=== PATIENT | female | born 1950 | race Caucasian/White ===

== ENCOUNTER 2020-05-20 10:41 | Observation (INO) | payer MEDICARE ==
[2020-05-20] MEDS ORDERED: MECLIZINE 12.5 MG TAB PO STA (11:09)
[2020-05-20] MEDS ORDERED: SODIUM CHLORIDE 0.9% 1,000 ML IV STA (11:09)
[2020-05-20] MEDS ORDERED: ONDANSETRON 4 MG/2 ML VIAL IVP STA (11:09)
--- NOTE | 2020-05-20 11:15 | ED ---
General Adult HPI - General Chief complaint: Dizziness Stated complaint: Vertigo Time Seen by Provider: 05/20/20 10:45 Source: patient, EMS, RN notes reviewed, old records reviewed Mode of arrival: EMS - History of Present Illness Initial comments: 70-year-old female history of vertigo presenting for evaluation lightheaded, vomiting or patient states that approximate 7:30 this morning she had bent over and when she stood up quickly she became lightheaded, dizzy and had one episode of vomiting. Proximally half hour later she ate a salad and became more nauseous. She's has not had the sensation of room spinning. She denies headache. Denies focal numbness or weakness. She denies any pain complaints, no chest pain or abdominal pain. She does report persistent nausea. - Related Data Allergies Allergy/AdvReac Type Severity Reaction Status Date / Time tetracycline Allergy Unknown Verified 05/20/20 11:33 Review of Systems ROS Statement: Those systems with pertinent positive or pertinent negative responses have been documented in the HPI. ROS Other: All systems not noted in ROS Statement are negative. Past Medical History Past Medical History: Hypertension, Osteoarthritis (OA) History of Any Multi-Drug Resistant Organisms: None Reported Past Surgical History: Joint Replacement Past Psychological History: No Psychological Hx Reported Smoking Status: Never smoker Past Alcohol Use History: None Reported Past Drug Use History: None Reported General Exam General appearance: alert, in no apparent distress Head exam: Present: atraumatic, normocephalic Eye exam: Present: normal appearance, PERRL ENT exam: Present: normal exam Neck exam: Present: normal inspection. Absent: tenderness, meningismus Respiratory exam: Present: normal lung sounds bilaterally. Absent: respiratory distress Cardiovascular Exam: Present: regular rate, normal rhythm GI/Abdominal exam: Present: soft. Absent: distended Extremities exam: Present: normal inspection, normal capillary refill. Absent: pedal edema Neurological exam: Present: alert, oriented X3, CN II-XII intact. Absent: motor sensory deficit Psychiatric exam: Present: normal affect, normal mood Skin exam: Present: warm, intact, diaphoretic Course Vital Signs 05/20/20 05/20/20 05/20/20 10:48 11:00 11:30 Temperature 97.4 F L Pulse Rate 71 66 68 Respiratory 16 14 14 Rate Blood Pressure 166/89 166/89 171/79 O2 Sat by Pulse 97 96 97 Oximetry 05/20/20 05/20/20 05/20/20 12:00 12:30 13:04 Temperature Pulse Rate 65 69 69 Respiratory 16 4 L 18 Rate Blood Pressure 169/81 172/102 171/78 O2 Sat by Pulse 99 98 Oximetry - Reevaluation(s) Reevaluation #1: 05/20/20 13:31 Patient has had no further episodes of nausea vomiting. She did have one episode of diarrhea in the emergency department. No abdominal pain or tenderness. Reevaluation #2: 05/20/20 14:02 Patient has persistent nausea and vomiting while in the emergency department. She will be admitted for hydration, symptomatic control. EKG Findings - EKG Comments: EKG Findings:: EKG: Normal sinus rhythm, rate of 69, AZ interval 150, QRS duration 92, QTC 486, no ST segment elevation T-wave inversion in lead 3. Medical Decision Making - Medical Decision Making 70-year-old female presenting with lightheadedness, dizziness, and nausea vomiting. Patient does have a history of vertigo, states this was similar to her usual episodes of vertigo. Upon arrival she is somewhat somnolent diaphoretic. She is hypertensive with otherwise stable vitals. She has a nonfocal neurologic exam, no ataxia. Workup was initiated, she has a normal CBC, normal CMP, EKG is sinus rhythm without ischemic changes, troponin is negative. Head CT is performed which is negative for intracranial hemorrhage or mass effect. Patient remains symptomatic while emergency department and does develop some diarrhea. This may just be related to gastrointestinal infection versus food poisoning. However she remains quite nauseated with persistent vomiting. She will be admitted for symptom control and IV hydration. - Lab Data Result diagrams: 05/20/20 11:16 05/20/20 11:16 Lab Results 05/20/20 05/20/20 05/20/20 Range/Units 11:16 11:16 11:16 WBC 7.7 (3.8-10.6) k/uL RBC 5.12 (3.80-5.40) m/uL Hgb 14.5 (11.4-16.0) gm/dL Hct 45.2 (34.0-46.0) % MCV 88.4 (80.0-100.0) fL MCH 28.3 (25.0-35.0) pg MCHC 32.0 (31.0-37.0) g/dL RDW 13.3 (11.5-15.5) % Plt Count 300 (150-450) k/uL Neutrophils % 67 % Lymphocytes % 23 % Monocytes % 6 % Eosinophils % 2 % Basophils % 1 % Neutrophils # 5.2 (1.3-7.7) k/uL Lymphocytes # 1.8 (1.0-4.8) k/uL Monocytes # 0.5 (0-1.0) k/uL Eosinophils # 0.1 (0-0.7) k/uL Basophils # 0.1 (0-0.2) k/uL Sodium 138 (137-145) mmol/L Potassium 3.9 (3.5-5.1) mmol/L Chloride 106 (98-107) mmol/L Carbon Dioxide 24 (22-30) mmol/L Anion Gap 8 mmol/L BUN 17 (7-17) mg/dL Creatinine 0.53 (0.52-1.04) mg/dL Est GFR (CKD-EPI)AfAm >90 (>60 ml/min/1.73 sqM) Est GFR (CKD-EPI)NonAf >90 (>60 ml/min/1.73 sqM) Glucose 168 H (74-99) mg/dL Calcium 10.0 (8.4-10.2) mg/dL Total Bilirubin 0.5 (0.2-1.3) mg/dL AST 18 (14-36) U/L ALT 10 (4-34) U/L Alkaline Phosphatase 85 (38-126) U/L Troponin I <0.012 (0.000-0.034) ng/mL Total Protein 7.0 (6.3-8.2) g/dL Albumin 4.1 (3.5-5.0) g/dL Disposition Clinical Impression: Dehydration, Nausea & vomiting Disposition: ADMITTED IP TO THIS HOSP Condition: Stable Is patient prescribed a controlled substance at d/c from ED?: No Referrals: Nonstaff,Physician [Primary Care Provider] - 1-2 days Decision to Admit Reason: Admit from EC Decision Date: 05/20/20 Decision Time: 14:06
[2020-05-20 11:24] LABS: Basophils # (A) 0.1 k/uL (0-0.2); Basophils % (A) 1 %; Eosinophils # (A) 0.1 k/uL (0-0.7); Eosinophils % (A) 2 %; HCT 45.2 % (34.0-46.0); HGB 14.5 gm/dL (11.4-16.0); Lymphocytes # (A) 1.8 k/uL (1.0-4.8); Lymphocytes % (A) 23 %; MCH 28.3 pg (25.0-35.0); MCV 88.4 fL (80.0-100.0); Mean Platelet Volume 7.9; Monocytes # (A) 0.5 k/uL (0-1.0); Monocytes % (A) 6 %; Neutrophils # (A) 5.2 k/uL (1.3-7.7); Neutrophils % (A) 67 %; Platelet Count 300 k/uL (150-450); RBC 5.12 m/uL (3.80-5.40); RDW 13.3 % (11.5-15.5); WBC 7.7 k/uL (3.8-10.6)
[2020-05-20 11:34] LABS: ALT 10 U/L (4-34); AST 18 U/L (14-36); African American GFR (CKD) >90 (>60 ml/min/1.73 sqM); Albumin 4.1 g/dL (3.5-5.0); Alkaline Phosphatase 85 U/L (38-126); Anion Gap 8 mmol/L; Blood Urea Nitrogen 17 mg/dL (7-17); Carbon Dioxide 24 mmol/L (22-30); Chloride 106 mmol/L (98-107); Glucose 168 mg/dL (74-99); Non-African American GFR(CKD) >90 (>60 ml/min/1.73 sqM); Potassium 3.9 mmol/L (3.5-5.1); Sodium 138 mmol/L (137-145); Total Bilirubin 0.5 mg/dL (0.2-1.3)
--- NOTE | 2020-05-20 12:00 | CT ---
EXAMINATION TYPE: CT brain wo con DATE OF EXAM: 05/20/2020 COMPARISON: None HISTORY: 70-year-old female Vertigo, nausea and vomiting TECHNIQUE: Examination was done in axial plane without intravenous contrast. Coronal and sagittal r econstructions performed. CT DLP: 1060.4 mGycm Automated exposure control for dose reduction was used. FINDINGS: There is no evidence of acute intracranial hemorrhage, acute ischemic changes, mass-effect, or extra -axial fluid collection. There is no effacement of cerebral sulci or basal subarachnoid cisterns. T here is no hydrocephalus. There is no midline shift. Mckeon-white matter distinction is preserved. Small 8 mm inner table osteoma versus meningioma anterior right frontal region. Paranasal sinuses and mastoid air cells are well pneumatized. Orbits and globes are intact. IMPRESSION: No acute intracranial abnormality seen.
[2020-05-20] MEDS ORDERED: SODIUM CHLORIDE 0.9% 500 ML 500 ML IV ONE (13:30)
[2020-05-20] MEDS ORDERED: METOCLOPRAMIDE 5 MG/ML 2 ML VIAL IVP STA (14:02)
[2020-05-20] MEDS ORDERED: NALOXONE 0.4 MG/ML 1 ML VIAL IV PRN ×2 (14:03→14:14)
[2020-05-20] MEDS ORDERED: LORazepam 2 MG/ML INJ IV PRN (14:03)
[2020-05-20] MEDS ORDERED: ONDANSETRON 4 MG/2 ML VIAL IVP PRN (14:03)
[2020-05-20] MEDS ORDERED: MORPHINE SULFATE 4 MG/ML SYRINGE IV PRN (14:03)
[2020-05-20] MEDS ORDERED: ACETAMINOPHEN TAB 325 MG TAB PO PRN (14:03)
[2020-05-20] MEDS ORDERED: PROCHLORPERAZINE SUPPOSITORY 25 MG SUPP RECTAL PRN (14:14)
[2020-05-20] MEDS ORDERED: PROCHLORPERAZINE 5 MG TAB PO PRN (14:14)
[2020-05-20] MEDS: SODIUM CHLORIDE 0.9% 1,000 ML IV SCH (14:34)
--- NOTE | 2020-05-20 14:47 | P.HPIM ---
History of Present Illness H&P Date: 05/20/20 Chief Complaint: vomiting, diarrhea 70-year-old woman with past medical history of hypertension presented after developing vomiting. Patient tells me that she had a salad this morning and 45 minutes after that she developed intense nausea and began to vomit. This was non-biliary nonbloody emesis. It is associated with abdominal cramping, but no severe/sharp abdominal pain. She also started to develop diarrhea, had 2 episodes of watery, nonbloody diarrhea. Throughout the day, she started to develop orthostatic symptoms such as lightheadedness and flushing upon sitting or standing, with diaphoresis. She denies fevers, chills, chest pain, shortness of breath, sick contacts, tenesmus, dyschezia, dysuria, melena, hematochezia, numbness/weakness. Next On arrival she is afebrile, 171/78, heart rate C9, 98% on room air. CBC is unremarkable. Chemistries are unremarkable. LFTs are unremarkable. Troponin was negative. CT of the head was negative. EKG was normal sinus rhythm. Review of Systems All Systems reviewed and pertinent positives and negatives noted in HPI, all other symptoms are negative Past Medical History Past Medical History: Hypertension, Osteoarthritis (OA) History of Any Multi-Drug Resistant Organisms: None Reported Past Surgical History: Joint Replacement Past Psychological History: No Psychological Hx Reported Smoking Status: Never smoker Past Alcohol Use History: None Reported Past Drug Use History: None Reported Medications and Allergies Home Medications Medication Instructions Recorded Confirmed Type Ascorbic Acid [Vitamin C] 1,000 mg PO DAILY 05/20/20 05/20/20 History Cholecalciferol [Vitamin D3 (25 5,000 unit PO DAILY 05/20/20 05/20/20 History Mcg = 1000 Iu)] Ubidecarenone [Co Q-10] 100 mg PO DAILY 05/20/20 05/20/20 History amLODIPine [Norvasc] 10 mg PO DAILY 05/20/20 05/20/20 History Allergies Allergy/AdvReac Type Severity Reaction Status Date / Time tetracycline Allergy Unknown Verified 05/20/20 14:33 Physical Exam Osteopathic Statement: *. No significant issues noted on an osteopathic structural exam other than those noted in the History and Physical/Consult. Vitals: Vital Signs Temp Pulse Resp BP Pulse Ox 05/20/20 13:04 69 18 171/78 98 05/20/20 12:30 69 4 L 172/102 05/20/20 12:00 65 16 169/81 99 05/20/20 11:30 68 14 171/79 97 05/20/20 11:00 66 14 166/89 96 05/20/20 10:48 97.4 F L 71 16 166/89 97 Intake and Output 05/19/20 05/20/20 05/20/20 22:59 06:59 14:59 Other: Weight 71.214 kg Gen: awake, alert HEENT: normocephalic, atraumatic, good hearing acuity, moist mucous membranes Resp: CTAB, good air exchange, no accessory muscle use, no wheezes, crackles, rhonchi CVS: good distal perfusion x 4, RRR, no murmurs, clicks, gallops GI: soft, NTTP, ND : no SPT, no CVAT, su catheter not present MSK: no pitting edema, no clubbing Neuro: non-focal, no sensory deficits, appropriate tone Psych: cooperative, euthymic mood Results CBC & Chem 7: 05/20/20 11:16 05/20/20 11:16 Labs: Abnormal Lab Results - Last 24 Hours (Table) 05/20/20 Range/Units 11:16 Glucose 168 H (74-99) mg/dL Assessment and Plan Assessment: 1. Gastroenteritis secondary to food ingestion 2. Hypertension 70-year-old woman with past medical history of hypertension presented after eating salad and then developing acute emesis and later diarrhea consistent with gastroenteritis secondary to food ingestion. Plan: IVF nausea/pain control stool cx, c diff pending defer abx at this time telemetry Full Code is DPOA ambulation TID for DVT ppx
[2020-05-20] MEDS: amLODIPine 10 MG TAB PO SCH (17:07)
[2020-05-20 17:52] LABS: Appearance,Urine Clear (Clear); Color,Urine Yellow
[2020-05-20 17:53] LABS: Bilirubin,Urine Negative (Negative); Blood,Urine Negative (Negative); Glucose,Urine (UA) Negative (Negative); Ketones,Urine 2+ (Negative); Nitrite,Urine Negative (Negative); Protein,Urine Negative (Negative)
[2020-05-20 17:54] LABS: Leukocyte Esterase,Urine Negative (Negative)
[2020-05-21] MEDS: SODIUM CHLORIDE 0.9% 1,000 ML IV SCH (02:07)
[2020-05-21 05:41] LABS: Basophils % (A) 0 %; Eosinophils # (A) 0.1 k/uL (0-0.7); Eosinophils % (A) 1 %; HCT 43.4 % (34.0-46.0); HGB 13.8 gm/dL (11.4-16.0); Lymphocytes # (A) 2.5 k/uL (1.0-4.8); Lymphocytes % (A) 24 %; MCH 28.3 pg (25.0-35.0); MCHC 31.7 g/dL (31.0-37.0); MCV 89.2 fL (80.0-100.0); Mean Platelet Volume 8.6; Monocytes # (A) 0.8 k/uL (0-1.0); Monocytes % (A) 8 %; Neutrophils # (A) 6.8 k/uL (1.3-7.7); Neutrophils % (A) 66 %; Platelet Count 287 k/uL (150-450); RBC 4.86 m/uL (3.80-5.40); RDW 13.2 % (11.5-15.5); WBC 10.4 k/uL (3.8-10.6)
[2020-05-21 05:47] LABS: African American GFR (CKD) >90 (>60 ml/min/1.73 sqM); Anion Gap 4 mmol/L; Blood Urea Nitrogen 9 mg/dL (7-17); Calcium 9.1 mg/dL (8.4-10.2); Carbon Dioxide 25 mmol/L (22-30); Chloride 109 mmol/L (98-107); Glucose 97 mg/dL (74-99); Magnesium 1.9 mg/dL (1.6-2.3); Non-African American GFR(CKD) >90 (>60 ml/min/1.73 sqM); Potassium 3.7 mmol/L (3.5-5.1); Sodium 138 mmol/L (137-145)
[2020-05-21 08:38] VITALS: BP 159/81; PULSE 83; RESP 16; TEMP 97.8
[2020-05-21] MEDS ORDERED: ASCORBIC ACID 500 MG TAB PO SCH (09:00)
[2020-05-21] MEDS ORDERED: CHOLECALCIFEROL 1,000 UNIT TAB PO SCH (09:00)
[2020-05-21] MEDS ORDERED: NON FORMULARY DRUG (Ubidecarenone [Co Q-10] 100 MG) PO SCH (09:00)
[2020-05-21] MEDS: amLODIPine 10 MG TAB PO SCH (09:42)
--- NOTE | 2020-05-21 10:51 | P.DS ---
Providers Date of admission: 05/20/20 14:03 Attending physician: Tal Black MD Primary care physician: Physician Nonstaff Hospital Course: 1. Gastroenteritis secondary to food ingestion 2. Hypertension 70-year-old woman with past medical history of hypertension presented after eating salad and then developing acute emesis and later diarrhea consistent with gastroenteritis secondary to food ingestion. Pt recovered well with IVF, and was without nausea at time of discharge the following day. She will follow up with PCP. Counseled on electrolyte rich fluid replacement should she continue to have diarrhea. Patient Condition at Discharge: Stable Plan - Discharge Summary Discharge Rx Participant: No New Discharge Prescriptions: Continue amLODIPine [Norvasc] 10 mg PO DAILY Cholecalciferol [Vitamin D3 (25 Mcg = 1000 Iu)] 5,000 unit PO DAILY Ascorbic Acid [Vitamin C] 1,000 mg PO DAILY Ubidecarenone [Co Q-10] 100 mg PO DAILY Discharge Medication List Ascorbic Acid [Vitamin C] 1,000 mg PO DAILY 05/20/20 [History] Cholecalciferol [Vitamin D3 (25 Mcg = 1000 Iu)] 5,000 unit PO DAILY 05/20/20 [History] Ubidecarenone [Co Q-10] 100 mg PO DAILY 05/20/20 [History] amLODIPine [Norvasc] 10 mg PO DAILY 05/20/20 [History] Follow up Appointment(s)/Referral(s): Nonstaff,Physician [Primary Care Provider] - 1-2 days Discharge Disposition: HOME SELF-CARE
== END 2020-05-21 11:53 | disposition home or self-care (01) ==
LOC: EC 10:41 → 1SOBS 14:03
PROVIDERS: ADMIT Internal Medicine; ATTEND Internal Medicine
DX: A05.9 Bacterial foodborne intoxication, unspecified (principal); E86.0 Dehydration; Z88.1 Allergy status to other antibiotic agents; Z96.60 Presence of unspecified orthopedic joint implant; I10 Essential (primary) hypertension; M19.90 Unspecified osteoarthritis, unspecified site; Z79.899 Other long term (current) drug therapy
CPT/HCPCS: 96361; 96374; 96375; 99285; 36415; 93005; 80053; 80048; 83735; 84484; 85025 ×2; 81003; 70450; G0378 ×2; J2765; J2405

== ENCOUNTER 2023-10-11 08:49 | Emergency (ER) | payer MEDICARE ==
--- NOTE | 2023-10-11 08:52 | ED ---
General Adult HPI - General Source: patient, RN notes reviewed, old records reviewed <Pineda Moreno - Last Filed: 10/11/23 08:51> <Evelyne Wilson - Last Filed: 10/11/23 23:12> - General Stated complaint: [place], NVD Time Seen by Provider: 10/11/23 08:49 - History of Present Illness Initial comments: This is a 73-year-old female who states that she was dizzy today. Patient stat es she started having diarrhea this morning. Patient states she got up and was at a hold onto things to get around the house. Patient denies any pain at this time. Patient denies any pain earlier. Patient denies any fever chills. (Pineda Moreno) Note reviewed. This is a pleasant 73-year-old female with no significant past medical history presents the emergency department with a chief complaint of sudden onset of nausea, vomiting and diarrhea that started this morning. She does report having him diaphoresis associated with this. She denies any known fever, chills, abdominal pain, chest pain or shortness of breath. She reports that she did start taking omeprazole last night and looked up the side effects and felt like her symptoms were similar. She denies any recent sick contacts. She does not take any medications at home. (Evelyne Mccann i) - Related Data Home Medications Medication Instructions Recorded Confirmed Ascorbic Acid [Vitamin C] 1,000 mg PO DAILY 05/20/20 05/20/20 Cholecalciferol [Vitamin D3 (25 5,000 unit PO DAILY 05/20/20 05/20/20 Mcg = 1000 Iu)] Ubidecarenone [Co Q-10] 100 mg PO DAILY 05/20/20 05/20/20 amLODIPine [Norvasc] 10 mg PO DAILY 05/20/20 05/20/20 Previous Rx's Medication Instructions Recorded Ondansetron Odt [Zofran Odt] 4 mg PO Q8HR PRN #10 tab 10/11/23 Allergies Allergy/AdvReac Type Severity Reaction Status Date / Time tetracycline Allergy Unknown Verified 10/11/23 09:12 Review of Systems ROS Other: All systems not noted in ROS Statement are negative. <Pineda Moreno - Last Filed: 10/11/23 08:51> ROS Other: All systems not noted in ROS Statement are negative. <Evelyne Wilson - Last Filed: 10/11/23 23:12> ROS Statement: Those systems with pertinent positive or pertinent negative responses have been documented in the HPI. 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 History of Any Multi-Drug Resistant Organisms: None Reported Past Surgical History: Joint Replacement Additional Past Surgical History / Comment(s): r knee replacement, partial hysterectomy (fibroid tumors) Past Anesthesia/Blood Transfusion Reactions: No Reported Reaction Additional Past Anesthesia/Blood Transfusion Reaction / Comment(s): never had a blood tranfusion Past Psychological History: No Psychological Hx Reported Smoking Status: Never smoker Past Alcohol Use History: None Reported Past Drug Use History: None Reported - Past Family History Father Additional Family Medical History / Comment(s): cardiac related secondary to malaria <Pineda Moreno - Last Filed: 10/11/23 08:51> General Exam <Pineda Moreno - Last Filed: 10/11/23 08:51> <Evelyne Wilson - Last Filed: 10/11/23 23:12> - General Exam Comments Initial Comments: Visual Physical Exam Vital signs reviewed General: Well-appearing, nontoxic, no acute distress. Head: Normocephalic, atraumatic Eyes: PERRLA, EOMI ENT: Airway patent Chest: Nonlabored breathing Skin: No visual rash, normal skin tone Neuro: Alert and oriented 3 Musculoskeletal: No gross abnormalities (Pineda Moreno) General: Alert, in no acute distress Head: atraumatic normocephalic. Eyes PERRL, EOMI intact, mucous membranes moist Respiratory: Lungs clear to auscultation bilaterally Cardiovascular: Rate regular rate and rhythm Abdominal: Soft without guarding or rebound Extremities: Normal inspection with full range of motion and normal capillary refill Neuroogic: alert and oriented 3, CN II-XII intact, able to ambulate with steady gait Skin: warm dry and intact with normal color (Evelyne Wilson) Course <Evelyne Wilson - Last Filed: 10/11/23 23:12> Vital Signs 10/11/23 10/11/23 10/11/23 09:10 12:33 13:36 Temperature 98.3 F 97.4 F L Pulse Rate 68 66 76 Respiratory 20 18 18 Rate Blood Pressure 158/67 179/81 167/94 O2 Sat by Pulse 100 99 100 Oximetry - Reevaluation(s) Reevaluation #1: 10/11/23 12:00 . Patient reports symptomatic resolution. She reports that she would just like to rest at this time. (Evelyne Wilson) Reevaluation #2: 10/11/23 12:46 Notified of refusal of covert test. Agreeable to plan for additional lab work and fluids. Resting comfortably. (Evelyne Wilson) Medical Decision Making - Lab Data Result diagrams: 10/11/23 09:19 10/11/23 09:19 <Evelyne Wilson - Last Filed: 10/11/23 23:12> - Medical Decision Making Was pt. sent in by a medical professional or institution (, PA, ROCK D[employer]AYER, urgent care, hospital, or retirement...) When possible be specific @ -[No] Did you speak to anyone other than the patient for history (EMS, parent, family, police, friend...)? What history was obtained from this source @ -[No] Did you review nursing and triage notes (agree or disagree)? Why? @ -[I reviewed and agree with nursing and triage notes] Were old charts reviewed (outside hosp., previous admission, EMS record, old EKG, old radiological studies, urgent care reports/EKG's, retirement records)? Report findings @ -[No old charts were reviewed] Differential Diagnosis (chest pain, altered mental status, abdominal pain women, abdominal pain men, vaginal bleeding, weakness, fever, dyspnea, syncope, headache, dizziness, GI bleed, back pain, seizure, CVA, palpatations, mental health, musculoskeletal)? @ -[not applicable] EKG interpreted by me (3pts min.). @ -[As above] X-rays interpreted by me (1pt min.). @ X-ray does not reveal any significant consolidation or marked cardiomegaly CT interpreted by me (1pt min.). @ -T does not reveal any intracranial hemorrhage or midline shift U/S interpreted by me (1pt. min.). @ -[None done] What testing was considered but not performed or refused? (CT, X-rays, U/S, labs)? Why? @ -[None] What meds were considered but not given or refused? Why? @ -Refused Covid influenza and RSV swab Did you discuss the management of the patient with other professionals (professionals i.e. , PA, [employer]ER, lab, RT, psych nurse, social media sr strategy manager, solar energy consultant and designer, te acher, chief investment officer, correctional casework specialist)? Give summary @ -[No] Was smoking cessation discussed for >3mins.? @ -[No] Was critical care preformed (if so, how long)? @ -[No] Were there social determinants of health that impacted care today? How? (Homelessness, low income, unemployed, alcoholism, drug addiction, transportation, low edu. Level, literacy, decrease access to med. care, care home, re hab)? @ -[No] Was there de-escalation of care discussed even if they declined (Discuss DNR or withdrawal of care, Hospice)? DNR status @ -[No] What co-morbidities impacted this encounter? (DM, HTN, Smoking, COPD, CAD, Cancer, CVA, ARF, Chemo, Hep., AIDS, mental health diagnosis, sleep apnea, morbid obesity)? @ -[None] Was patient admitted / discharged? Hospital course, mention meds given and route, prescriptions, significant lab abnormalities, going to OR and other pertinent info. @ -Discharge. This is a pleasant 3-year-old female who presents the emergency department with a chief complaint of nausea vomiting and dizziness. Patient had a thorough history and physical exam performed. Physical exam is essentially unremarkable. Heart rate regular rate and rhythm, lungs clear to auscultation bilaterally abdomen soft and nontender. There are no focal neuro deficits noted on exam. Patient is able to move alternates feeling. Patient is able tingling with a steady gait. She was provided Lomotil, 1 L IV fluids with symptomatic improvement. Patient had laboratory studies, imaging which were unremarkable. Including 2 negative troponin test negative imaging. I discussed the results in detail the patient verbalized understanding all questions were addressed. Patient was provided Zofran upon discharge. Return parameters were discussed at length. She is agreeable with the plan for discharge home. Undiagnosed new problem with uncertain prognosis? @ -[No] Drug Therapy requiring intensive monitoring for toxicity (Heparin, Nitro, Insulin, Cardizem)? @ -[No] Were any procedures done? @ -[No] Diagnosis/symptom? @ -Dizziness - Nausea and Vomiting Acute, or Chronic, or Acute on Chronic? @ -Acute Uncomplicated (without systemic symptoms) or Complicated (systemic symptoms)? @ -Uncomplicated Side effects of treatment? @ -[No] Exacerbation, Progression, or Severe Exacerbation? @ -[No] Poses a threat to life or bodily function? How? (Chest pain, USA, IA, pneumonia, PE, COPD, DKA, ARF, appy, cholecystitis, CVA, Diverticulitis, Homicidal, Suicidal, threat to staff... and all critical care pts) @ -Low likelihood (Evelyne Wilson) - Lab Data Lab Results 10/11/23 10/11/23 10/11/23 Range/Units 09:19 09:19 09:19 WBC 6.9 (3.8-10.6) k/uL RBC 5.03 (3.80-5.40) m/uL Hgb 14.4 (11.4-16.0) gm/dL Hct 44.2 (34.0-46.0) % MCV 87.9 (80.0-100.0) fL MCH 28.7 (25.0-35.0) pg MCHC 32.6 (31.0-37.0) g/dL RDW 14.2 (11.5-15.5) % Plt Count 253 (150-450) k/uL MPV 8.3 Neutrophils % 73 % Lymphocytes % 19 % Monocytes % 6 % Eosinophils % 1 % Basophils % 1 % Neutrophils # 5.0 (1.3-7.7) k/uL Lymphocytes # 1.3 (1.0-4.8) k/uL Monocytes # 0.4 (0-1.0) k/uL Eosinophils # 0.0 (0-0.7) k/uL Basophils # 0.0 (0-0.2) k/uL PT 10.7 (10.0-12.5) sec INR 1.0 (<1.2) APTT 21.8 L (22.0-30.0) sec D-Dimer 0.62 H (<0.60) mg/L FEU Sodium 141 (137-145) mmol/L Potassium 3.9 (3.5-5.1) mmol/L Chloride 108 H (98-107) mmol/L Carbon Dioxide 22 (22-30) mmol/L Anion Gap 11 mmol/L BUN 21 H (7-17) mg/dL Creatinine 0.52 (0.52-1.04) mg/dL Est GFR (CKD-EPI)AfAm >90 (>60 ml/min/1.73 sqM) Est GFR (CKD-EPI)NonAf >90 (>60 ml/min/1.73 sqM) Glucose 161 H (74-99) mg/dL Calcium 9.4 (8.4-10.2) mg/dL Magnesium 2.0 (1.6-2.3) mg/dL Total Bilirubin 0.6 (0.2-1.3) mg/dL AST 19 (14-36) U/L ALT 13 (4-34) U/L Alkaline Phosphatase 80 (38-126) U/L Troponin I (0.000-0.034) ng/mL Total Protein 6.8 (6.3-8.2) g/dL Albumin 3.9 (3.5-5.0) g/dL 10/11/23 10/11/23 Range/Units 09:19 12:30 WBC (3.8-10.6) k/uL RBC (3.80-5.40) m/uL Hgb (11.4-16.0) gm/dL Hct (34.0-46.0) % MCV (80.0-100.0) fL MCH (25.0-35.0) pg MCHC (31.0-37.0) g/dL RDW (11.5-15.5) % Plt Count (150-450) k/uL MPV Neutrophils % % Lymphocytes % % Monocytes % % Eosinophils % % Basophils % % Neutrophils # (1.3-7.7) k/uL Lymphocytes # (1.0-4.8) k/uL Monocytes # (0-1.0) k/uL Eosinophils # (0-0.7) k/uL Basophils # (0-0.2) k/uL PT (10.0-12.5) sec INR (<1.2) APTT (22.0-30.0) sec D-Dimer (<0.60) mg/L FEU Sodium (137-145) mmol/L Potassium (3.5-5.1) mmol/L Chloride (98-107) mmol/L Carbon Dioxide (22-30) mmol/L Anion Gap mmol/L BUN (7-17) mg/dL Creatinine (0.52-1.04) mg/dL Est GFR (CKD-EPI)AfAm (>60 ml/min/1.73 sqM) Est GFR (CKD-EPI)NonAf (>60 ml/min/1.73 sqM) Glucose (74-99) mg/dL Calcium (8.4-10.2) mg/dL Magnesium (1.6-2.3) mg/dL Total Bilirubin (0.2-1.3) mg/dL AST (14-36) U/L ALT (4-34) U/L Alkaline Phosphatase (38-126) U/L Troponin I <0.012 <0.012 (0.000-0.034) ng/mL Total Protein (6.3-8.2) g/dL Albumin (3.5-5.0) g/dL Disposition <Pineda Moreno - Last Filed: 10/11/23 08:51> Is patient prescribed a controlled substance at d/c from ED?: No Time of Disposition: 13:25 <Evelyne Wilson - Last Filed: 10/11/23 23:12> Clinical Impression: Nausea & vomiting, Dizziness Disposition: HOME SELF-CARE Condition: Stable Instructions (If sedation given, give patient instructions): Acute Nausea and Vomiting (ED) Additional Instructions: Please monitor your symptoms closely Please refrain from taking omeprazole if able Please return to the nearest emergency department. Abdominal pain, high fever or blood in stool or vomit develop Prescriptions: Ondansetron Odt [Zofran Odt] 4 mg PO Q8HR PRN #10 tab PRN Reason: Nausea Referrals: Herson Katz MD [Primary Care Provider] - 1-2 days
[2023-10-11] MEDS ORDERED: SODIUM CHLORIDE 0.9% 1,000 ML IV ONE ×2 (08:53→12:00)
[2023-10-11] MEDS ORDERED: DIPHENOX-ATROP 2.5-0.025 MG 1 EACH TAB PO STA (08:54)
[2023-10-11 09:26] LABS: Basophils % (A) 1 %; Eosinophils % (A) 1 %; HCT 44.2 % (34.0-46.0); HGB 14.4 gm/dL (11.4-16.0); Lymphocytes # (A) 1.3 k/uL (1.0-4.8); Lymphocytes % (A) 19 %; MCH 28.7 pg (25.0-35.0); MCHC 32.6 g/dL (31.0-37.0); MCV 87.9 fL (80.0-100.0); Mean Platelet Volume 8.3; Monocytes # (A) 0.4 k/uL (0-1.0); Monocytes % (A) 6 %; Neutrophils % (A) 73 %; Platelet Count 253 k/uL (150-450); RBC 5.03 m/uL (3.80-5.40); RDW 14.2 % (11.5-15.5); WBC 6.9 k/uL (3.8-10.6)
[2023-10-11 09:43] LABS: ALT 13 U/L (4-34); AST 19 U/L (14-36); African American GFR (CKD) >90 (>60 ml/min/1.73 sqM); Albumin 3.9 g/dL (3.5-5.0); Alkaline Phosphatase 80 U/L (38-126); Anion Gap 11 mmol/L; Blood Urea Nitrogen 21 mg/dL (7-17); Calcium 9.4 mg/dL (8.4-10.2); Carbon Dioxide 22 mmol/L (22-30); Chloride 108 mmol/L (98-107); Glucose 161 mg/dL (74-99); Non-African American GFR(CKD) >90 (>60 ml/min/1.73 sqM); Potassium 3.9 mmol/L (3.5-5.1); Sodium 141 mmol/L (137-145); Total Bilirubin 0.6 mg/dL (0.2-1.3); Total Protein 6.8 g/dL (6.3-8.2)
[2023-10-11 09:49] LABS: Prothrombin Time 10.7 sec (10.0-12.5)
--- NOTE | 2023-10-11 09:59 | XR ---
EXAMINATION TYPE: XR chest 2V DATE OF EXAM: 10/11/2023 COMPARISON: None HISTORY: 73-year-old female with chest pain TECHNIQUE: PA and lateral views FINDINGS: Heart normal size. Aorta and pulmonary vasculature within normal limits. Hyperinflation. Strandy atel ectasis or scarring at the left base. 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 S-shap ed scoliotic curvature thoracic spine. No consolidation or pleural effusion. IMPRESSION: COPD. No definite acute process.
[2023-10-11 10:14] LABS: Partial Thromboplastin Time 21.8 sec (22.0-30.0)
--- NOTE | 2023-10-11 10:15 | CT ---
EXAMINATION TYPE: CT brain wo con DATE OF EXAM: 10/11/2023 COMPARISON: 05/20/2020 HISTORY: 73-year-old female Vertigo TECHNIQUE: Examination was done in axial plane without intravenous contrast. Coronal and sagittal r econstructions performed. CT DLP: 1094.4 mGycm Automated exposure control for dose reduction was used. FINDINGS: There is no evidence of acute intracranial hemorrhage, acute ischemic changes, mass, mass-effect, or extra-axial fluid collection. There is no effacement of cerebral sulci or basal subarachnoid cister ns. There is no hydrocephalus. There is no midline shift. Mckeon-white matter distinction is preserv ed. Mild patchy left subinsular white matter hypodensity remains unchanged. Benign punctate left basal ga nglionic calcifications. Rightward nasal septal deviation. Paranasal sinuses and mastoid air cells are well pneumatized. Sligh tly divergent gaze may reflect underlying strabismus. IMPRESSION: Stable mild burden of chronic small vessel ischemic disease. No acute intracranial abnormality seen.
[2023-10-11] MEDS ORDERED: ONDANSETRON 4 MG/2 ML VIAL IVP STA (12:00)
[2023-10-11 12:59] VITALS: RESP 18
[2023-10-11] MEDS ORDERED: ONDANSETRON 4 MG ODT STARTER PACK 2 TAB BTL PO STA (13:26)
[2023-10-11 13:47] VITALS: BP 167/94; PULSE 76; TEMP 97.4
== END 2023-10-11 13:47 | disposition home or self-care (01) ==
LOC: EC 08:49
DX: R42 Dizziness and giddiness (principal); R11.2 Nausea with vomiting, unspecified; I10 Essential (primary) hypertension; Z79.899 Other long term (current) drug therapy; Z88.8 Allergy status to other drugs, medicaments and biological substances
CPT/HCPCS: 36415; 93005; 85379; 80053; 83735; 84484; 85025; 85610; 85730; 71046; 70450; 99285; 96374; 96361; J2405; S0119

== ENCOUNTER 2024-05-10 08:26 | Emergency (ER) | payer MEDICARE ==
[2024-05-10] MEDS ORDERED: AMPICILLIN-SULBACTAM 3 GM VIAL ONE (09:53)
[2024-05-10] MEDS ORDERED: KETOROLAC 15 MG/ML 1 ML VIAL ONE (09:54)
[2024-05-10] MEDS ORDERED: SODIUM CHLORIDE 0.9% 1,000 ML BAG ONE (10:23)
[2024-05-10] MEDS ORDERED: SODIUM CHLORIDE 0.9% 100 ML BAG IV ONE (10:23)
[2024-05-10] MEDS ORDERED: DOXYCYCLINE 100 MG CAP ONE (13:09)
[2024-05-10] MEDS ORDERED: CLINDAMYCIN 150 MG CAP ONE (14:18)
[2024-05-10] MEDS ORDERED: CIPROFLOXACIN HCL 500 MG TAB ONE (14:19)
--- NOTE | 2024-06-15 15:18 | XR ---
Patient Mounika Jennings ID [id number] Order # EXAMINATION TYPE: XR hand complete RT DATE OF EXAM: 05/10/2024 COMPARISON: No comparison available on downtime PACS. HISTORY: Cat bite right hand TECHNIQUE: 3 view right hand FINDINGS: No acute fracture or dislocation is evident. Advanced degenerative changes at the first car pometacarpal junction. No radiopaque foreign body is evident. Mild joint space narrowing is present to the remaining joint s paces including metacarpal phalangeal joint spaces, proximal and distal interphalangeal joint spaces. There appears to be some mild diffuse soft tissue swelling present. IMPRESSION: 1. No acute osseous abnormality. 2. Degenerative joint changes greatest at the first carpal metacarpal junction. 3. No radiopaque foreign bodies. 4. Mild diffuse soft tissue swelling can be related to infection.
== END 2024-05-10 14:36 | disposition home or self-care (01) ==
LOC: EC 08:26
DX: S61.451A Open bite of right hand, initial encounter (principal); W55.01XA Bitten by cat, initial encounter
CPT/HCPCS: 99283; 96365; 96366; 96375; 36415; 80053; 85652; 83605; 85025; 86140; 73130; J0295; J1885

== ENCOUNTER 2024-10-06 13:07 | Emergency (ER) | payer MEDICARE ==
[2024-10-06 13:11] VITALS: TEMP 97.2
--- NOTE | 2024-10-06 14:09 | ED ---
General Adult HPI - General Chief complaint: Extremity Injury, Upper Stated complaint: L hand swelling Time Seen by Provider: 10/06/24 13:20 Source: patient, RN notes reviewed Mode of arrival: ambulatory Limitations: no limitations - History of Present Illness Initial comments: This is a 74-year-old with a history of severe osteoarthritis and Sjogren's dis ease presents emergency department chief complaint of left hand pain, erythema, edema paresthesias over the past 2 days. Patient states that she does experience intermittent paresthesias of the left distal fingertips and hand as she does have a history of carpal tunnel however the symptoms have been becoming more intermittent over the past few days. She denies recent trauma or injuries to the hand. She denies fevers, chills, nausea, vomiting. Denies history of gout. Denies pain of the wrist or elbow. - Related Data Home Medications Medication Instructions Recorded Confirmed Ascorbic Acid [Vitamin C] 1,000 mg PO DAILY 05/20/20 05/20/20 Cholecalciferol [Vitamin D3 (25 5,000 unit PO DAILY 05/20/20 05/20/20 Mcg = 1000 Iu)] Ubidecarenone [Co Q-10] 100 mg PO DAILY 05/20/20 05/20/20 amLODIPine [Norvasc] 10 mg PO DAILY 05/20/20 05/20/20 Previous Rx's Medication Instructions Recorded Ondansetron Odt [Zofran Odt] 4 mg PO Q8HR PRN #10 tab 10/11/23 Cephalexin [Keflex] 500 mg PO Q6HR #40 cap 10/06/24 Ketorolac [Toradol] 10 mg PO Q8HR #15 tab 10/06/24 Allergies Allergy/AdvReac Type Severity Reaction Status Date / Time tetracycline Allergy Unknown Verified 10/06/24 13:08 Review of Systems ROS Statement: Those systems with pertinent positive or pertinent negative responses have been documented in the HPI. ROS Other: All systems not noted in ROS Statement are negative. 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 History of Any Multi-Drug Resistant Organisms: None Reported Past Surgical History: Joint Replacement Additional Past Surgical History / Comment(s): r knee replacement, partial hysterectomy (fibroid tumors) Past Anesthesia/Blood Transfusion Reactions: No Reported Reaction Additional Past Anesthesia/Blood Transfusion Reaction / Comment(s): never had a blood tranfusion Past Psychological History: No Psychological Hx Reported Smoking Status: Never smoker Past Alcohol Use History: None Reported Past Drug Use History: None Reported - Past Family History Father Additional Family Medical History / Comment(s): cardiac related secondary to malaria General Exam Limitations: no limitations General appearance: alert, in no apparent distress Eye exam: Present: normal appearance, PERRL, EOMI. Absent: scleral icterus, conjunctival injection, periorbital swelling Respiratory exam: Present: normal lung sounds bilaterally. Absent: respiratory distress, wheezes, rales, rhonchi, stridor Cardiovascular Exam: Present: regular rate, normal rhythm, normal heart sounds. Absent: systolic murmur, diastolic murmur, rubs, gallop, clicks GI/Abdominal exam: Present: soft, normal bowel sounds. Absent: distended, tenderness, guarding, rebound, rigid Left Hand Wrist exam: Present: tenderness, swelling, erythema. Absent: ecchymosis, deformity, nail avulsion, subungual hematoma Neuro motor exam: Present: wrist extension intact, thumb opposition intact Vascular: Present: normal capillary refill, radial pulse (2+). Absent: vascular compromise Back exam: Present: normal inspection Neurological exam: Present: alert, oriented X3, CN II-XII intact Course Vital Signs 10/06/24 10/06/24 13:08 15:41 Temperature 97.2 F L Pulse Rate 60 85 Respiratory 16 18 Rate Blood Pressure 197/95 191/76 O2 Sat by Pulse 95 97 Oximetry Medical Decision Making - Medical Decision Making Was pt. sent in by a medical professional or institution (, PA, CHIEF OPERATOR, urgent care, hospital, or alf...) When possible be specific @ -No Did you speak to anyone other than the patient for history (EMS, parent, family, police, friend...)? What history was obtained from this source @ -No Did you review nursing and triage notes (agree or disagree)? Why? @ -I reviewed and agree with nursing and triage notes Were old charts reviewed (outside hosp., previous admission, EMS record, old EKG, old radiological studies, urgent care reports/EKG's, alf records)? Report findings @ -No old charts were reviewed Differential Diagnosis (chest pain, altered mental status, abdominal pain women, abdominal pain men, vaginal bleeding, weakness, fever, dyspnea, syncope, headache, dizziness, GI bleed, back pain, seizure, CVA, palpatations, mental health, musculoskeletal)? @ -Cellulitis, gout, osteoarthritis, carpal tunnel, this list is not all inclusive EKG interpreted by me (3pts min.). @ -none X-rays interpreted by me (1pt min.). @ -X-ray of the left hand acute osseous abnormality with advanced degenerative changes of the first metacarpal junction. CT interpreted by me (1pt min.). @ -None done U/S interpreted by me (1pt. min.). @ -None done What testing was considered but not performed or refused? (CT, X-rays, U/S, labs)? Why? @ -None What meds were considered but not given or refused? Why? @ -None Did you discuss the management of the patient with other professionals (professionals i.e. , PA, CHIEF OPERATOR, lab, RT, psych nurse, geriatric social worker, track grinder, teacher, hospital admissions officer, geriatric case manager)? Give summary @ -No Was smoking cessation discussed for >3mins.? @ -No Was critical care preformed (if so, how long)? @ -No Were there social determinants of health that impacted care today? How? (Homelessness, low income, unemployed, alcoholism, drug addiction, transportation, low edu. Level, literacy, decrease access to med. care, senior living, rehab)? @ -No Was there de-escalation of care discussed even if they declined (Discuss DNR or withdrawal of care, Hospice)? DNR status @ -No What co-morbidities impacted this encounter? (DM, HTN, Smoking, COPD, CAD, Cancer, CVA, ARF, Chemo, Hep., AIDS, mental health diagnosis, sleep apnea, morbid obesity)? @ -None Was patient admitted / discharged? Hospital course, mention meds given and route, prescriptions, significant lab abnormalities, going to OR and other pertinent info. @ -Discharge. 74 female presenting with left hand pain, erythema edema. Patient was offered pain medication however has declined. Evaluation consistent with erythema and warmth to the touch of the left hand with swelling. Neurovascular intact. X-ray and laboratory studies including CBC, CMP, lactic acid within normal limits. Concern for possible cellulitis she is provided with dose of Rocephin via IV and sent to a course of antibiotics of Keflex in addition to oral anti-inflammatories. Case discussed with Dr. Moreno Undiagnosed new problem with uncertain prognosis? @ -No Drug Therapy requiring intensive monitoring for toxicity (Heparin, Nitro, Insulin, Cardizem)? @ -No Were any procedures done? @ -No Diagnosis/symptom? @ -cellulitis Acute, or Chronic, or Acute on Chronic? @ -acute Uncomplicated (without systemic symptoms) or Complicated (systemic symptoms)? @ -uncomplicated Side effects of treatment? @ -No Exacerbation, Progression, or Severe Exacerbation? @ -No Poses a threat to life or bodily function? How? (Chest pain, USA, VT, pneumonia, PE, COPD, DKA, ARF, appy, cholecystitis, CVA, Diverticulitis, Homicidal, Suicidal, threat to staff... and all critical care pts) @ -No - Lab Data Result diagrams: 10/06/24 14:42 10/06/24 14:42 Lab Results 10/06/24 10/06/24 10/06/24 Range/Units 14:42 14:42 14:42 WBC 8.6 (3.8-10.6) k/uL RBC 5.14 (3.80-5.40) m/uL Hgb 14.4 (11.4-16.0) gm/dL Hct 43.8 (34.0-46.0) % MCV 85.3 (80.0-100.0) fL MCH 27.9 (25.0-35.0) pg MCHC 32.8 (31.0-37.0) g/dL RDW 15.2 (11.5-15.5) % Plt Count 264 (150-450) k/uL MPV 8.0 Neutrophils % 69 % Lymphocytes % 20 % Monocytes % 7 % Eosinophils % 1 % Basophils % 1 % Neutrophils # 5.9 (1.3-7.7) k/uL Lymphocytes # 1.7 (1.0-4.8) k/uL Monocytes # 0.6 (0-1.0) k/uL Eosinophils # 0.1 (0-0.7) k/uL Basophils # 0.1 (0-0.2) k/uL Sodium 139 (137-145) mmol/L Potassium 4.6 (3.5-5.1) mmol/L Chloride 100 (98-107) mmol/L Carbon Dioxide 29 (22-30) mmol/L Anion Gap 10 mmol/L BUN 24 H (7-17) mg/dL Creatinine 0.74 (0.52-1.04) mg/dL Est GFR (CKD-EPI)AfAm >90 (>60 ml/min/1.73 sqM) Est GFR (CKD-EPI)NonAf 81 (>60 ml/min/1.73 sqM) Glucose 112 H (74-99) mg/dL Plasma Lactic Acid Jackson 1.1 (0.7-2.0) mmol/L Calcium 9.7 (8.4-10.2) mg/dL Total Bilirubin 0.6 (0.2-1.3) mg/dL AST 19 (14-36) U/L ALT 11 (4-34) U/L Alkaline Phosphatase 99 (38-126) U/L Total Protein 7.6 (6.3-8.2) g/dL Albumin 4.4 (3.5-5.0) g/dL Disposition Clinical Impression: Cellulitis, Edema of hand Disposition: HOME SELF-CARE Condition: Good Instructions (If sedation given, give patient instructions): Cellulitis (ED) Additional Instructions: Please return to the Emergency Department if symptoms worsen or any other concerns. Prescriptions: Cephalexin [Keflex] 500 mg PO Q6HR #40 cap Ketorolac [Toradol] 10 mg PO Q8HR #15 tab Is patient prescribed a controlled substance at d/c from ED?: No Referrals: Herson Katz MD [Primary Care Provider] - 1-2 days Time of Disposition: 15:32
[2024-10-06 14:51] LABS: Basophils # (A) 0.1 k/uL (0-0.2); Basophils % (A) 1 %; Eosinophils # (A) 0.1 k/uL (0-0.7); Eosinophils % (A) 1 %; HCT 43.8 % (34.0-46.0); HGB 14.4 gm/dL (11.4-16.0); Lymphocytes # (A) 1.7 k/uL (1.0-4.8); Lymphocytes % (A) 20 %; MCH 27.9 pg (25.0-35.0); MCHC 32.8 g/dL (31.0-37.0); MCV 85.3 fL (80.0-100.0); Monocytes # (A) 0.6 k/uL (0-1.0); Monocytes % (A) 7 %; Neutrophils # (A) 5.9 k/uL (1.3-7.7); Neutrophils % (A) 69 %; Platelet Count 264 k/uL (150-450); RBC 5.14 m/uL (3.80-5.40); RDW 15.2 % (11.5-15.5); WBC 8.6 k/uL (3.8-10.6)
--- NOTE | 2024-10-06 14:52 | XR ---
EXAMINATION TYPE: XR hand complete LT DATE OF EXAM: 10/06/2024 2:19 PM COMPARISON: None. CLINICAL INDICATION: Female, 74 years old with history of erythema, edema, pain, pain TECHNIQUE: 3 view(s) obtained. FINDINGS: Advanced degenerative changes are at the first carpal metacarpal junction. Mild degenerative joint ch anges and metacarpophalangeal joint spaces. Some degenerative changes of the distal index finger inte rphalangeal joint space. No acute fractures are evident. Follow up exams can be performed 7-10 days from acute trauma for continued pain. IMPRESSION: 1. 1. No acute osseous abnormality left shoulder. [facility], , 10/06/2024 2:49 PM
[2024-10-06 15:03] LABS: ALT 11 U/L (4-34); AST 19 U/L (14-36); African American GFR (CKD) >90 (>60 ml/min/1.73 sqM); Albumin 4.4 g/dL (3.5-5.0); Alkaline Phosphatase 99 U/L (38-126); Anion Gap 10 mmol/L; Blood Urea Nitrogen 24 mg/dL (7-17); Calcium 9.7 mg/dL (8.4-10.2); Carbon Dioxide 29 mmol/L (22-30); Chloride 100 mmol/L (98-107); Glucose 112 mg/dL (74-99); Non-African American GFR(CKD) 81 (>60 ml/min/1.73 sqM); Potassium 4.6 mmol/L (3.5-5.1); Sodium 139 mmol/L (137-145); Total Bilirubin 0.6 mg/dL (0.2-1.3); Total Protein 7.6 g/dL (6.3-8.2)
[2024-10-06 15:43] VITALS: BP 191/76; PULSE 85; RESP 18
[2024-10-06] MEDS: cefTRIAXone IN SWFI 1,000 MG/10 ML SYRINGE IVP STA (15:43)
== END 2024-10-06 15:59 | disposition home or self-care (01) ==
LOC: EC 13:07
DX: L03.114 Cellulitis of left upper limb (principal); Z88.1 Allergy status to other antibiotic agents
CPT/HCPCS: 36415; 80053; 83605; 85025; 73130; 99283; 96374; J0696